=== PATIENT | male | born 1960 | race Caucasian/White ===

== ENCOUNTER 2021-09-23 20:28 | Emergency (ER) | payer MEDICARE, MEDICAID ==
[~2021-09-23] VITALS: Ht 165.1 cm; Wt 70.5 kg
[2021-09-23] MEDS ORDERED: MORPHINE SULFATE 4 MG/ML SYRINGE IVP ONE (20:45)
[2021-09-23] MEDS ORDERED: NALOXONE HCL 1 MG/ML 2 ML SYRINGE ONE (20:47)
[2021-09-23] MEDS ORDERED: MIDAZOLAM HCL 5 MG/ML VIAL ONE (20:47)
[2021-09-23] MEDS ORDERED: FentaNYL CITRATE PF 100 MCG/2 ML VIAL ONE (20:47)
[2021-09-23] MEDS ORDERED: FLUMAZENIL 0.1 MG/ML 5 ML VIAL IVP ONE (20:47)
[2021-09-23] MEDS ORDERED: MIDAZOLAM HCL 5 MG/ML VIAL IVP ONE (21:00)
[2021-09-23] MEDS ORDERED: FentaNYL CITRATE PF 100 MCG/2 ML VIAL IVP ONE (21:00)
[2021-09-23 21:57] VITALS: BP 139/80
== END 2021-09-23 22:36 | disposition home or self-care (01) ==
LOC: EMS 20:31
DX: S43.005A Unspecified dislocation of left shoulder joint, initial encounter (principal); W11.XXXA Fall on and from ladder, initial encounter; Y93.89 Activity, other specified; Y92.89 Other specified places as the place of occurrence of the external cause; Y99.8 Other external cause status
CPT/HCPCS: 23650; 73030; 99285; G0238; J2250; J3010; 99152; J2270; J2310; J3490

== ENCOUNTER 2024-04-12 13:16 | Emergency (ER) | payer MEDICAID, MEDICARE ==
[~2024-04-12] VITALS: Ht 162.6 cm; Wt 70.0 kg
[2024-04-12 13:36] VITALS: BP 128/62; PULSE 73; RESP 18; TEMP 98.7; O2SAT 98
[2024-04-12] MEDS: TraMADol HCL 50 MG TABLET PO ONE (15:27)
[2024-04-12] MEDS: PERTUSS(ACELL),DIPH,TET/PF 0.5 ML SYRINGE [ADULT] IM. ONE (16:17)
[2024-04-12] MEDS ORDERED: CEPH-558 PO (16:37)
== END 2024-04-12 16:47 | disposition home or self-care (01) ==
LOC: EMS 13:16
DX: S81.011A Laceration without foreign body, right knee, initial encounter (principal); S09.90XA Unspecified injury of head, initial encounter; V19.88XA Pedal cyclist (driver) (passenger) injured in other specified transport accidents, initial encounter; Y93.89 Activity, other specified; Y92.89 Other specified places as the place of occurrence of the external cause; Y99.8 Other external cause status
CPT/HCPCS: 12001; 70450; 90471; 90715; 99285